=== PATIENT | male | born 1975 | race Caucasian/White ===

== ENCOUNTER 2019-01-22 19:01 | Emergency (ER) | payer OTHER ==
[~2019-01-22] VITALS: Ht 180.3 cm; Wt 124.7 kg
[~2019-01-22 19:01] MED LIST: ACETAMINOPHEN-1 EAC1 PO; BACTRIM DS TAB1 EACH PO; HYDROCODONE-AP1 EAC6 PO; MEDROLDOSEPACK PO; MOBIC7.5 MG PO; NOHOMEMEDICATIONS; ONDANSETRON HCL4 M2 PO; ROBAXIN 750 MG750 M1 PO; VENTOLIN HFA 1818 GM INH; ZOFRAN ODT4 MG PO
[2019-01-22] MEDS ORDERED: VENTOLIN HFA 1818 GM (19:17)
[2019-01-22 19:59] LABS: URINE BILIRUBIN NEGATIVE (Negative); URINE BLOOD NEGATIVE (Negative); URINE CLARITY CLEAR; URINE COLOR YELLOW; URINE GLUCOSE-RANDOM NEGATIVE (Negative); URINE KETONES NEGATIVE (Negative); URINE LEUKOCYTES-REFLEX NEGATIVE (Negative); URINE NITRITE-REFLEX NEGATIVE (Negative); URINE PROTEIN NEGATIVE (Negative); URINE SPECIFIC GRAVITY >= 1.030 (1.005-1.030); URINE UROBILINOGEN 0.2 E.U./dl (0.2-1.0)
[2019-01-22 20:11] LABS: ABSOLUTE EOSINOPHILS 0.1 thou/uL (0.0-0.7); ABSOLUTE LYMPHOCYTES 1.3 thou/uL (0.8-5.3); ABSOLUTE MONOCYTES 0.3 thou/uL (0.0-1.2); ABSOLUTE NEUTROPHILS 1.8 thou/uL (1.6-8.1); BASOPHILS 0.8 %; EOSINOPHILS 2.4 %; HEMOGLOBIN 13.2 gm/dL (14.0-18.0); LYMPHOCYTES 36.5 %; MCH 30.3 pg (26.0-34.0); MCHC 33.8 g/dL (28.0-37.0); MCV 89.6 fL (80.0-100.0); MONOCYTES 9.8 %; MPV 10.2 fl. (7.2-11.1); NUCLEATED RBCS 0 /100WBC; PLATELET COUNT* 112 thou/uL (150-400); POLYS 50.5 %; RBC 4.36 mil/uL (4.50-6.00); RDW-CV 14.1 % (10.5-14.5); WBC 3.5 thou/uL (4.0-11.0)
[2019-01-22 20:33] LABS: ALBUMIN 3.5 g/dL (3.4-5.0); CALCIUM 8.4 mg/dL (8.5-10.1); CREATININE 1.2 mg/dL (0.6-1.3); POTASSIUM 3.5 mmol/L (3.5-5.1); TOTAL PROTEIN 7.2 g/dL (6.4-8.2)
[2019-01-22] MEDS ORDERED: ZOFRAN ODT4 MG PO (21:56)
[2019-01-22] MEDS ORDERED: NORCO 5-325 TA1 EACH PO (21:56)
[2019-01-22 22:23] VITALS: BP 108/68
== END 2019-01-22 22:24 | disposition home or self-care (01) ==
LOC: M.ERS 19:01
PROVIDERS: Physician Assistant
DX: E80.7 Disorder of bilirubin metabolism, unspecified (principal); R10.32 Left lower quadrant pain; R11.2 Nausea with vomiting, unspecified; R16.1 Splenomegaly, not elsewhere classified; G89.29 Other chronic pain; M54.5 Low back pain; Z91.018 Allergy to other foods

== ENCOUNTER 2019-01-31 19:08 | Emergency (ER) | payer OTHER ==
[~2019-01-31] VITALS: Ht 180.3 cm; Wt 108.9 kg
[~2019-01-31 19:08] MED LIST changes: +NORCO 5-325 TA1 EACH PO; +VENTOLIN HFA 1818 GM
[2019-01-31] MEDS ORDERED: NORCO 5-325 TA1 EACH PO (19:40)
[2019-01-31] MEDS ORDERED: ROBAXIN 750 MG750 M1 PO (19:40)
[2019-01-31 20:13] VITALS: BP 146/84
== END 2019-01-31 20:14 | disposition home or self-care (01) ==
LOC: M.ERS 19:08
DX: M54.5 Low back pain (principal); J45.909 Unspecified asthma, uncomplicated; G89.29 Other chronic pain; Z91.018 Allergy to other foods